=== PATIENT | female | born 1960 | race Caucasian/White ===

== ENCOUNTER 2020-08-29 08:22 | Day surgery (SDC) | payer MEDICARE, OTHER ==
[~2020-08-29] VITALS: Ht 162.6 cm; Wt 72.5 kg
[~2020-08-29 08:22] MED LIST: ATORVASTATIN CA20 MG PO; Augmentin 875-1 EACH PO; BENA20 PO; CAPT25 PO; CEFP250 PO; Catapres-Tts 11 EACH PO; GLUC500 PO; LEVSOD100 PO; LOSA25 PO; Lutein6 MG; OMEP10ER PO; SYNTHROID88 MCG PO; ZYRTEC10 M1 PO
--- NOTE | 2020-08-29 09:40 | NUR ---
08/29/20 0940 Julia Beckett PT PROVIDED OWN SLING/IMMOBILIZER PER DR. CAMPOS'S APPROVAL.
--- NOTE | 2020-08-29 11:24 | NUR ---
08/29/20 1124 Marianne Patel INTERSCALENE NERVE BLOCK PERFORMED IN PRE-OP 925: TIME OUT CONDUCTED 926: SITE CHECK CONFIRMED, PROCEDURE START 930: PROCEDURE END 6L/MIN VIA NON-REBREATHER & PULSE OX ON THROUGHOUT PROCEDURE. PT TOLERATED WELL, NO ISSUES OR COMPLICATIONS. DR. LION ADMINISTERED 2MG VERSED IVP & 100MCG FENTANYL IVP PRIOR TO START OF BLOCK.
== END 2020-08-29 23:59 | disposition home or self-care (01) ==
LOC: ORSCSDS 08:22
PROVIDERS: Orthopaedic Surgery
PROC: 0LQ14ZZ Repair Right Shoulder Tendon, Percutaneous Endoscopic Approach (ICD-10-PCS; principal; 2020-08-29 10:00)
PROC: 0LU14JZ Supplement Right Shoulder Tendon with Synthetic Substitute, Percutaneous Endoscopic Approach (ICD-10-PCS; principal; 2020-08-29 10:00)
PROC: 0RHJ44Z Insertion of Internal Fixation Device into Right Shoulder Joint, Percutaneous Endoscopic Approach (ICD-10-PCS; principal; 2020-08-29 10:00)
PROC: 0RNJ4ZZ Release Right Shoulder Joint, Percutaneous Endoscopic Approach (ICD-10-PCS; principal; 2020-08-29 10:00)
PROC: 0LS34ZZ Reposition Right Upper Arm Tendon, Percutaneous Endoscopic Approach (ICD-10-PCS; principal; 2020-08-29 10:00)
DX: S46.001A Unspecified injury of muscle(s) and tendon(s) of the rotator cuff of right shoulder, initial encounter (principal); M75.21 Bicipital tendinitis, right shoulder; M75.41 Impingement syndrome of right shoulder; I10 Essential (primary) hypertension; E03.9 Hypothyroidism, unspecified; Z79.899 Other long term (current) drug therapy; Z87.891 Personal history of nicotine dependence
CPT/HCPCS: C1713; J0171; J1100; J2250; J2370; J2405; J2704; J3010; J7120